=== PATIENT | female | born 1940 | race Caucasian/White ===

== ENCOUNTER → 2020-10-30 | Outpatient (CLI) | payer OTHER ==
[~2020-10-30] MED LIST: AMLODIPINE; CIPROFLOXACIN500 M1 PO; DYAZIDE; FLAGYL 250 MG250 MG PO; LEVOTHROID; LEVOTHROID88 MCG PO; LISINOPRIL; LISINOPRIL40 MG PO; NORVASC 2.5 MG2.5 M1; NORVASC 2.5 MG2.5 MG PO
== END ==
LOC: M.ULTRA 11:30 → M.RAD 11:53
PROVIDERS: ATTEND Specialist
DX: R22.43 Localized swelling, mass and lump, lower limb, bilateral (principal); R06.02 Shortness of breath; R05 Cough

== ENCOUNTER → 2021-01-01 | Outpatient (CLI) | payer OTHER ==
--- NOTE | 2021-01-01 16:55 | 2DMMODE ---
[place] [address] 2 D/M-MODE ECHOCARDIOGRAM Name: CECELIA LONG SAVANNAH Room: [facility]#: [id number] Admission: 01/01/21 Attend Phys: George Nathan Discharge: Date of : 42 Date of Service: 01/01/21 1654 Report #: [id number] THIS REPORT FOR: cc: George Nathan,Papa Gibbs MD [facility] ~ APPROVED REPORT Study performed: 01/01/2021 10:56:40 EXAM: Comprehensive 2D, Doppler, and color-flow Echocardiogram Patient Location: Out-Patient BSA: 1.96 HR: 67 bpm BP: 120/80 mmHg Other Information Study Quality: Good Indications Peripheral Edema 2D Dimensions IVSd: 11.07 (7-11mm) LVOT Diam: 20.03 (18-24mm) LVDd: 47.26 mm PWd: 10.57 (7-11mm) Ascending Ao: 34.28 (22-36mm) LVDs: 29.38 (25-40mm) Aortic Root: 29.34 mm Volumes Left Atrial Volume (Systole) LA ESV Index: 21.70 mL/m2 Aortic Valve AoV Peak Maycol.: 1.05 m/s AO Peak Gr.: 4.42 mmHg LVOT Max P.85 mmHg AO Mean Gr.: 2.50 mmHg LVOT Mean P.73 mmHg LVOT Max V: 0.98 m/s AO V2 VTI: 26.55 cm LVOT Mean V: 0.59 m/s DARVIN (VTI): 3.07 cm2 LVOT V1 VTI: 25.89 cm Mitral Valve E/A Ratio: 1.19 [place] [address] 2 D/M-MODE ECHOCARDIOGRAM Name: CECELIA LONG Room: [facility] Rogelio#: [id number] Admission: 01/01/21 Attend Phys: George Nathan Discharge: Date of : 42 Date of Service: 01/01/21 1654 Report #: [id number] MV Decel. Time: 182.33 ms MV E Max Maycol.: 0.80 m/s MV PHT: 52.88 ms MVA (PHT): 4.16 cm2 TDI E/Lateral E': 7.27 E/Medial E': 10.00 Medial E' Maycol.: 0.08 m/s Lateral E' Maycol.: 0.11 m/s Pulmonary Valve PV Peak Maycol.: 0.72 m/s PV Peak Gr.: 2.10 mmHg Tricuspid Valve RAP Estimate: 5.00 mmHg TR Peak Gr.: 24.38 mmHg RVSP: 29.38 mmHg PA Pressure: 29.38 mmHg Left Ventricle The left ventricle is normal size. There is normal LV segmental wall motion. There is normal left ventricular wall thickness. Left ventricular systolic function is normal. LVEF is 60-65%. Transmitral Doppler flow pattern suggests impaired LV relaxation. Right Ventricle The right ventricle is normal size. The right ventricular systolic function is normal. Atria The left atrium size is normal. The right atrium size is normal. Aortic Valve The aortic valve is normal in structure. No aortic regurgitation is present. There is no aortic valvular stenosis. Mitral Valve The mitral valve is normal in structure. Trace to mild mitral regurgitation. No evidence of mitral valve stenosis. Tricuspid Valve The tricuspid valve is normal in structure. Mild tricuspid regurgitation. The RVSP is 30-35 mmHg. Pulmonic Valve The pulmonary valve is normal [place] [address] 2 D/M-MODE ECHOCARDIOGRAM Name: CECELIA LONG SAVANNAH Room: [facility]#: [id number] Admission: 01/01/21 Attend Phys: George Nathan Discharge: Date of : 42 Date of Service: 01/01/21 1654 Report #: [id number] regurgitation. Great Vessels The aortic root is normal in size. IVC is normal in size and collapses >50% with inspiration. Pericardium There is no pericardial effusion. <Conclusion> The left ventricle is normal size. There is normal left ventricular wall thickness. Left ventricular systolic function is normal. LVEF is 60-65%. Transmitral Doppler flow pattern suggests impaired LV relaxation. There is normal LV segmental wall motion. Trace to mild mitral regurgitation. Mild tricuspid regurgitation. The RVSP is 30-35 mmHg. <ELECTRONICALLY SIGNED> By: Papa Hernandes MD, FACC 01/01/21 1654 [id number] Papa Hernandes MD, FACC /INF
== END ==
LOC: M.CRD 10:00
PROVIDERS: ATTEND Family Medicine
DX: I08.8 Other rheumatic multiple valve diseases (principal); R60.0 Localized edema